=== PATIENT | male | born 1995 | race Hispanic/Latino ===

== ENCOUNTER 2017-11-13 04:40 | Emergency (ER) | payer SELFPAY ==
[2017-11-13] MEDS ORDERED: ONDANSETRON HCL 4 MG/2 ML VIAL ONE ×2 (05:15→05:39)
[2017-11-13] MEDS ORDERED: MORPHINE SULFATE 4 MG/1ML SYG ONE ×2 (05:15→05:40)
[2017-11-13] MEDS ORDERED: LORAZEPAM 2 MG/ML 1 ML VIAL ONE (05:40)
[2017-11-13] MEDS ORDERED: SODIUM CHLORIDE 0.9% 1000ML 1,000 ML IV ONE (05:40)
== END 2017-11-13 07:02 | disposition home or self-care (01) ==
LOC: EDH 04:40
DX: S53.125A Posterior dislocation of left ulnohumeral joint, initial encounter (principal); Z72.0 Tobacco use; X58.XXXA Exposure to other specified factors, initial encounter; Y93.89 Activity, other specified; Y92.098 Other place in other non-institutional residence as the place of occurrence of the external cause; Y99.8 Other external cause status
CPT/HCPCS: 24600; 73070; 73080; 96361; 96374; 96375; 99284; J2060; J2270 ×2; J2405 ×2; J7030